=== PATIENT | female | born 1970 | race Caucasian/White ===

== ENCOUNTER 2024-01-30 09:22 | Emergency (ER) | payer OTHER, SELFPAY ==
--- NOTE | ~2024-01-30 | XR_ITS ---
EXAMINATION: XR finger 5th LT min 2V DATE: 01/30/2024 10:06 INDICATION: Posttraumatic pain at the left fifth metacarpophalangeal joint TECHNIQUE: Dorsal palmar, lateral and 2 oblique views of the left fifth digit were obtained COMPARISON: None FINDINGS: Diffuse osteopenia. Alignment is normal. No fracture. 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 Soft tissues are unremarkable. IMPRESSION: 1. No acute osseous abnormality. Reviewed, dictated and finalized at location B.
[2024-01-30 09:31] VITALS: BP 151/73; PULSE 74; RESP 16; TEMP 36.9; O2SAT 100
[2024-01-30 09:36] VITALS: BP 151/73; PULSE 74; RESP 16; TEMP 36.9; O2SAT 100
--- NOTE | 2024-01-30 10:00 | ED.UPPEXIN ---
HPI - Extremity Injury (Upper) General Chief Complaint: Extremity Injury, Upper Stated Complaint: Finger Injury Time Seen by Provider: 01/30/24 10:07 Source: patient and RN notes reviewed Mode of arrival: ambulatory Limitations: no limitations History of Present Illness HPI narrative: 53-year-old female presents concern for injury to her 5th digit of her right hand. Reports she hyperextended it today and heard a popping sound. She reports pain at the PIP joint and the D IP joint. She reports pain with flexion. MD complaint: injury to: right and finger Related Data Home Medications Medication Instructions Recorded Confirmed citalopram 20 mg tablet mg 01/30/24 empagliflozin 25 mg tablet mg 01/30/24 (Jardiance) lisinopril 20 mg tablet mg 01/30/24 semaglutide 14 mg tablet (Rybelsus) mg PO 01/30/24 warfarin 6 mg tablet mg 01/30/24 Allergies Allergy/AdvReac Type Severity Reaction Status Date / Time No Known Allergies Allergy Verified 01/30/24 09:35 Review of Systems Review of Systems: CONSTITUTIONAL: Denies malaise, chills, sweats, or fever. CARDIOVASCULAR: Denies chest pain, palpitations, or edema. RESPIRATORY: Denies cough or dyspnea. SKIN: Denies rash or itching, bruising, redness, swelling. MUSCULOSKELETAL: Reports pain to the 5th digit of the right hand NEUROLOGIC: Denies numbness, weakness All systems reviewed & are unremarkable except as noted in HPI and below PMFSH Comments At time of signature, agree with nursing past medical, surgical, social and family history. There is no relevant family history pertinent to the presenting complaint Exam Narrative: GENERAL: Well-appearing, well-nourished, and in no acute distress. HEAD: Normocephalic EYES: PERRLA, conjunctivae clear NECK: Supple. CHEST: Speaks in full sentences. No respiratory distress. HEART: Regular rate and rhythm. Normal and equal peripheral pulses. EXTREMITIES: 5th digit of the right hand has grossly normal strength and sensation. 4/5 strength with digit flexion, extension. Range of motion limited with flexion. No clubbing, cyanosis, or edema noted. General digit tenderness. Skin intact. Normal digital cascade with flexion of fingers, median, ulnar and radial nerve intact. Normal sensation of each side of finger. Can perform 'okay' sign, 'cross over finger test of index and middle fingers' and 'thumbs up' sign. No scissoring. Normal thumb opposition. Good capillary refill and radial pulse. Distal capillary refill less than 3 seconds. Patient is right/left hand dominant SKIN: Warn, dry, intact, pink. No rash NEURO: Alert and oriented x3. PSYCH: Normal mood and affect Course Course Emergency Course: Patient is aware of diagnosis, understands and agrees to treatment plan. Anticipatory guidance given. Patient agrees to follow-up as directed and is aware of reasons to seek care at the emergency department. Portions of this record may have been created with voice recognition software Level of Care: Express Care Visit Vital Signs Vital signs: Vital Signs Temperature 98.5 F 01/30/24 09:31 Pulse Rate 74 01/30/24 09:31 Respiratory Rate 16 01/30/24 09:31 Blood Pressure 151/73 H 01/30/24 09:31 Pulse Oximetry 100 01/30/24 09:31 Oxygen Delivery Room Air 01/30/24 09:31 Temperature 98.5 F 01/30/24 09:36 Pulse Rate 74 01/30/24 09:36 Respiratory Rate 16 01/30/24 09:36 Blood Pressure 151/73 H 01/30/24 09:36 Pulse Oximetry 100 01/30/24 09:36 Oxygen Delivery Room Air 01/30/24 09:36 Reviewed. MDM - Extremity Injury (Upper) MDM Narrative Medical decision making narrative: Patients injury and pain is consistent with musculoskeletal etiology. No signs of neurological or vascular compromise on exam. Compartments and tissues are soft without signs of compartment syndrome. Pain is felt appropriate for further evaluation on an outpatient basis. Imaging Data My impression: Images reviewed, interpr
== END 2024-01-30 10:26 | disposition home or self-care (01) ==
PROVIDERS: Emergency Provider Nurse Practitioner
DX: S63.617A Unspecified sprain of left little finger, initial encounter (principal); X50.9XXA Other and unspecified overexertion or strenuous movements or postures, initial encounter
CPT/HCPCS: 29130; 73140; 99203; G0463